=== PATIENT | male | born 2000 | race Caucasian/White ===

== ENCOUNTER 2024-01-08 20:39 | Emergency (ER) | payer OTHER, SELFPAY ==
--- NOTE | ~2024-01-08 | CT_ITS ---
EXAMINATION: CT brain wo con DATE: 01/08/2024 22:03 INDICATION: Migraine headache, change in pattern. Confusion. TECHNIQUE: Computed tomography (CT) of the head was performed without intravenous contrast. The mA wa s adjusted according to patient size. Iterative reconstruction technique was employed. Exam dose: 52 9.67 mGy-cm total exam DLP. COMPARISON: None FINDINGS: No intracranial mass lesion or hemorrhage or cerebrovascular accident. No midline shift or mass effect. Normal ventricular size. Normal lockhart-white matter differentiation. No subdural or epidural hematoma is detected. Included mastoid air cells and paranasal sinuses are normally developed and aerated. No fracture or bone destruction of the cranial vault. IMPRESSION: Normal examination Reviewed, dictated and finalized at [facility]. Reviewed, dictated and finalized at [facility]. IMPRESSION: Normal examination
[2024-01-08 20:41] VITALS: BP 156/82; PULSE 98; RESP 16; TEMP 36.5; O2SAT 100
--- NOTE | 2024-01-08 21:21 | ED.GENADULT ---
HPI - General Adult General Chief complaint: Unspecified Stated complaint: Headache, manic episode, blank stare. Time Seen by Provider: 01/08/24 20:53 Source: patient Mode of arrival: ambulatory Limitations: no limitations History of Present Illness HPI narrative: This is a 23-year-old male with PMH of ADHD, bipolar who presents to the ED for chief complaint of migraine headache for the past couple of days. Reports right-sided migraine the comes and goes in severity. He takes Tylenol which has limited relief. Reports that he has had migraines in the past and this is similar in nature, however usually does not last this long. He is here with his mother who is concerned because he had an episode of ?blank stare? earlier today. Reports for a few seconds he stared straight ahead but then responded when she shot is name. Reports that he has been adding medications and change medications for bipolar, ADHD and depression. Denies any head injury. Denies LOC. denies fevers, chills, neck pain, nausea, vomiting, numbness, weakness. Related Data Allergies Allergy/AdvReac Type Severity Reaction Status Date / Time No Known Allergies Allergy Verified 01/08/24 20:46 Review of Systems Review of Systems: All systems as dictated in HPI Exam Narrative: GENERAL: Well-appearing, well-nourished, and in no acute distress. Wearing sunglasses. HEAD: Normocephalic, atraumatic. EYES: PERRLA and EOMI. ENT: Nares clear, no rhinorrhea or epistaxis. Mucous membranes moist. Oropharynx without tonsillar hypertrophy exudate or other lesions. NECK: Supple. No adenopathy or masses. CHEST: No respiratory distress. Clear to auscultation. No wheezes rales or rhonchi HEART: Regular rate and rhythm. No murmur heard. Normal peripheral pulses. ABDOMEN: Soft, nontender, nondistended, normal active bowel sounds. MSK: Normal range of motion. No edema. SKIN: Warm, dry, no rash. NEURO: Alert and oriented x4. No focal deficits. 5/5 strength and sensation in the upper and lower extremities. Cranial nerves intact bilaterally. PSYCH: Normal mood and affect. Course Vital Signs Vital signs: Vital Signs Temperature 97.7 F 01/08/24 20:41 Pulse Rate 98 01/08/24 20:41 Respiratory Rate 16 01/08/24 20:41 Blood Pressure 156/82 H 01/08/24 20:41 Pulse Oximetry 100 01/08/24 20:41 Oxygen Delivery Room Air 01/08/24 20:41 Temperature 97.7 F 01/08/24 20:41 Pulse Rate 82 01/09/24 00:04 Respiratory Rate 18 01/09/24 00:04 Blood Pressure 102/78 01/09/24 00:04 Pulse Oximetry 99 01/09/24 00:04 Oxygen Delivery Room Air 01/08/24 20:41 Medical Decision Making MDM Narrative Medical decision making narrative: This is a 23-year-old male who presents to the ED with chief complaint of migraine headache to the right side of his head for the past couple of days. Vitals are normal. Exam is benign. No neural deficits. No signs of meningismus. CT brain is normal. Patient was given migraine cocktail here with significant relief. Pt will be discharged in stable condition. Return precautions given and supportive measures discussed. Pt is understanding and agreeable with plan for discharge and follow-up with PCP/psychiatrist Vital Signs Vital Signs: Vital Signs Temperature 97.7 F 01/08/24 20:41 Pulse Rate 98 01/08/24 20:41 Respiratory Rate 16 01/08/24 20:41 Blood Pressure 156/82 H 01/08/24 20:41 Pulse Oximetry 100 01/08/24 20:41 Oxygen Delivery Room Air 01/08/24 20:41 Temperature 97.7 F 01/08/24 20:41 Pulse Rate 82 01/09/24 00:04 Respiratory Rate 18 01/09/24 00:04 Blood Pressure 102/78 01/09/24 00:04 Pulse Oximetry 99 01/09/24 00:04 Oxygen Delivery Room Air 01/08/24 20:41 Discharge Plan Discharge Clinical Impression: Headache, migraine Patient Disposition: Home, Self-Care Condition: Stable Instructions: Antibiotic Form Additional Instructions: Your exam and
[2024-01-08] MEDS: SODIUM CHLORIDE 0.9% IV 1,000 ML 999 ML IV CONT (22:32)
[2024-01-08] MEDS: KETOROLAC 15 MG/ML VIAL (*BKC) IV PUSH (22:33)
[2024-01-08] MEDS: PROCHLORPERAZINE EDISYLATE 10 MG/2 ML VIAL IV PUSH (22:33)
[2024-01-08] MEDS: diphenhydrAMINE HCl INJ 50 MG/ML VIAL 25 MG IV PUSH (22:33)
[2024-01-08 22:40] VITALS: BP 113/64; PULSE 72; RESP 14; O2SAT 100
--- NOTE | 2024-01-08 23:00 | PC.NURSE ---
this rn assumed care of patient. this rn took patient report from GUERO Melvin.
[2024-01-08 23:44] VITALS: BP 111/62; PULSE 67; RESP 18; O2SAT 99
[2024-01-09 00:04] VITALS: BP 102/78; PULSE 82; RESP 18; O2SAT 99
== END 2024-01-09 00:07 | disposition home or self-care (01) ==
PROVIDERS: Emergency Provider Physician Assistant
DX: G43.909 Migraine, unspecified, not intractable, without status migrainosus (principal)
CPT/HCPCS: 70450; 96361; 96374; 96375; 99284; J0780; J1200; J1885; J7030